=== PATIENT | female | born 1980 | race Hispanic/Latino ===

== ENCOUNTER 2019-04-06 06:15 | Day surgery (SDC) | payer BC, MEDICAID ==
[2019-04-04 13:25] VITALS: BP 108/57
[2019-04-04 13:43] LABS: BASOPHILS % (AUTO) 0.3 % (0.0-5.0); EOSINOPHILS % (AUTO) 1.2 % (0.0-8.0); HEMATOCRIT 36.6 % (36-48); MEAN CORPUSCULAR HEMOGLOBIN 28.9 pg (27.0-33.0); MEAN CORPUSCULAR HGB CONC 32.9 g/dL (32.0-36.0); MEAN CORPUSCULAR VOLUME 87.9 fL (79-99); MONOCYTES % (AUTO) 4.9 % (3.0-13.0); NEUTROPHILS % (AUTO) 66.6 % (40.0-77.0); PLATELET COUNT (AUTO) 225 K/uL (130-400); RED BLOOD CELL COUNT(AUTO) 4.17 MIL/uL (4.00-5.50); WHITE BLOOD COUNT (AUTO) 6.7 K/uL (4.8-10.8)
[2019-04-04 13:45] LABS: APPEARANCE,URINE Clear (CLEAR); BILIRUBIN,URINE Negative (NEGATIVE); COLOR,URINE Yellow (YELLOW); GLUCOSE, URINE (UA) Negative (NEGATIVE); KETONES,URINE Negative (NEGATIVE); LEUKOCYTE ESTERASE ,URINE Moderate (NEGATIVE); NITRATE,URINE Negative (NEGATIVE); OCCULT BLOOD,URINE Negative (NEGATIVE); PROTEIN,URINE Negative (NEGATIVE)
[2019-04-04 13:54] LABS: BACTERIA,URINE Few /HPF (None Seen); MUCUS,URINE Few LPF (None Seen); RBC,URINE 0-1 /HPF (0-1)
[2019-04-04 13:55] LABS: ALBUMIN 3.4 g/dL (3.5-5.0); BILIRUBIN,DIRECT 0.1 mg/dL (0.0-0.3); BILIRUBIN,TOTAL 0.4 mg/dL (0.2-1.0); TOTAL PROTEIN, SERUM 7.5 g/dL (6.0-8.3)
[2019-04-06] VITALS (14 sets, daily range): BP systolic 104–118; BP diastolic 57–74
[~2019-04-06] VITALS: Ht 156.2 cm; Wt 87.3 kg
[2019-04-06] MEDS ORDERED: MIDAZOLAM HCL 1 MG/ML 2ML VIAL ONE (06:53)
[2019-04-06] MEDS ORDERED: LIDOCAINE PF 2% 5ML ABBOJECT ONE (06:53)
[2019-04-06] MEDS ORDERED: PROPOFOL 10 MG/ML 20ML VIAL IV ONE ×2 (06:54→08:03)
[2019-04-06] MEDS ORDERED: ROCURONIUM 10MG/1ML SYR 10 MG/ML ML ONE (06:54)
[2019-04-06] MEDS ORDERED: ONDANSETRON HCL 4 MG/2 ML VIAL ONE (06:54)
[2019-04-06] MEDS ORDERED: KETAMINE HCL 50MG/ML 10ML VIAL IJ ONE (06:55)
[2019-04-06] MEDS ORDERED: CEFAZOLIN SODIUM 1 GM VIAL ONE (06:58)
[2019-04-06] MEDS: LACTATED RINGERS 1000ML 1,000 ML IV SCH ×2 (07:06→09:10)
--- NOTE | 2019-04-06 07:06 | NUR ---
abt and sterile water taken with pt to or
[2019-04-06] MEDS ORDERED: BUPIVACAINE/PF 0.25% 50ML VIAL IJ ONE (07:19)
[2019-04-06] MEDS ORDERED: KETOROLAC TROMETHAMINE 30MG/ML ONE (07:36)
[2019-04-06] MEDS ORDERED: OCTYL 2-CYANOACRYLATE 1 EACH TP ONE (07:41)
[2019-04-06] MEDS ORDERED: ESMOLOL HCL 10 MG/ML 10 ML VIAL ONE (07:43)
[2019-04-06] MEDS ORDERED: GLYCOPYRROLATE 1 MG/5 ML SYRINGE ONE (07:43)
[2019-04-06] MEDS ORDERED: NEOSTIGMINE 5MG/5ML SYR IV ONE (07:43)
[2019-04-06] MEDS ORDERED: CEFAZOLIN SODIUM 1 GM VIAL IVP ONE (08:00)
[2019-04-06] MEDS ORDERED: CALDOLOR 800MG+NS 250ML 250 ML IV ONE (08:05)
[2019-04-06] MEDS ORDERED: EPHEDRINE SULFATE 50 MG/ML AMPULE ONE (08:14)
--- NOTE | 2019-04-06 10:10 | NUR ---
NEW RECEIVED PT FROM PACU, S/P LAP BTL BY DR. FLORES, LAP EUGENIO BY DR. HILLS. BANDAIDS X 4 TO ABD AREA DRY AND INTACT, LIZZIE PAD DRY NO DRAINAGE NOTED. PT AWAKE AND ALERT , NO DISTRESS NOTED. DENIES ANYPAIN OR DISCOMFORTS. VS STABLE ON ARRIVAL. SPOUSE AT BEDSIDE. CALL LIGHT WITHIN REACH.
--- NOTE | 2019-04-06 10:40 | NUR ---
dc dc instructions given to pt spouse with rx, instructed to f/u with dr. vang/dr. hall, bandaids to abd dry and intact, instructed on new med regimen and possible side effects. pt / spouse verbalized understanding.
--- NOTE | 2019-04-06 10:45 | NUR ---
dc pt dc home via wc, no distress noted. denied any discomforts. accompanied by spouse
== END 2019-04-06 10:40 | disposition home or self-care (01) ==
LOC: DAH 06:15
PROVIDERS: ATTEND Surgery
DX: Z30.2 Encounter for sterilization (principal); N83.8 Other noninflammatory disorders of ovary, fallopian tube and broad ligament; K80.10 Calculus of gallbladder with chronic cholecystitis without obstruction; Z88.8 Allergy status to other drugs, medicaments and biological substances; E66.9 Obesity, unspecified; Z68.35 Body mass index [BMI] 35.0-35.9, adult; Z87.891 Personal history of nicotine dependence; Z82.49 Family history of ischemic heart disease and other diseases of the circulatory system; Z83.3 Family history of diabetes mellitus
CPT/HCPCS: 36415; 47562; 58670; 80076; 81001; 84703; 85025; 86850; 86900; 86901; 88304; A4351; A4450; A4600; A4606; A4930; C1769 ×5; J0690; J1741; J1885; J2001; J2250; J2405; J2704 ×2; J2710; J3490 ×5; J7030